=== PATIENT | male | born 1965 | race Caucasian/White ===

== ENCOUNTER 2017-03-13 11:12 | Emergency (ER) | payer OTHER ==
[~2017-03-13] VITALS: Ht 182.9 cm; Wt 127.0 kg
[2017-03-13 12:15] LABS: microscopic required? NO
[2017-03-13 12:22] LABS: UA SPECIFIC GRAVITY 1.015 (1.005-1.035); urine erythrocyte NEGATIVE (NEGATIVE)
[2017-03-13 13:00] VITALS: BP 119/76
== END 2017-03-13 15:54 | disposition home or self-care (01) ==
LOC: ED 11:12
PROVIDERS: Emergency Medicine
DX: M51.36 Other intervertebral disc degeneration, lumbar region (principal); E11.9 Type 2 diabetes mellitus without complications; E03.9 Hypothyroidism, unspecified; F12.90 Cannabis use, unspecified, uncomplicated
CPT/HCPCS: J1100; J1885; J3010

== ENCOUNTER 2017-11-19 12:30 | Emergency (ER) | payer OTHER ==
[~2017-11-19] VITALS: Ht 182.9 cm; Wt 113.4 kg
[2017-11-19 12:31] VITALS: Ht 182.9 cm; Wt 113.4 kg
[2017-11-19 15:34] VITALS: BP 130/100
== END 2017-11-19 15:34 | disposition home or self-care (01) ==
LOC: ED 12:30
DX: F41.1 Generalized anxiety disorder (principal); F43.8 Other reactions to severe stress; E11.9 Type 2 diabetes mellitus without complications